=== PATIENT | male | born 1960 | race Caucasian/White ===

== ENCOUNTER 2018-04-05 16:55 | Inpatient (IN) | payer OTHER ==
[2018-04-05] MEDS ORDERED: Heparin for STEMI(*) 5,000 UNITS/ML 1 ML VIAL IV ONE ×3 (17:00→17:25)
--- NOTE | 2018-04-05 17:06 | ED ---
HPI Chest Pain - HPI Summary HPI Summary: A 57 y/o male brought in by [place] ambulance presents to [facility] with a chief complaint of chest pain since 16:00. The patient was a possible STEMI. At 16:54 Dr. Lee was at bedside reviewing the patient. At 17:07 a STEMI alert was called The patient was given 1 NTG in the ambulance. He also c/o nausea, diaphoresis and indigestion. He denies vomiting. He states that he has been having similar symptoms for months but the pain has been alleviated quickly, but today his pain remained. He states that initially his pain was an 8 or 9/10 but now is at a 7/10. - History of Current Complaint Hx Obtained From: Patient, EMS Onset/Duration: Started Minutes Ago, Still Present Timing: Constant Initial Severity: Severe Current Severity: Moderate Pain Intensity: 7 Pain Scale Used: 0-10 Numeric Chest Pain Location: Diffuse Chest Pain Radiates: No Character: Tightness Aggravating Factor(s): Exertion Alleviating Factor(s): Nothing Associated Signs and Symptoms: Positive: Nausea - Allergy/Home Medications Allergies/Adverse Reactions: Allergies Allergy/AdvReac Type Severity Reaction Status Date / Time CONTRAST DYE Allergy Anaphylatic Uncoded 09/04/15 09:37 Shock PMH/Surg Hx/FS Hx/Imm Hx Endocrine/Hematology History: Denies: Hx Diabetes Cardiovascular History: Denies: Hx Hypertension - BORDERLINE - DOES NOT TAKE MEDS, Hx Pacemaker/ICD Respiratory History: Denies: Hx Asthma History: Reports: Hx Renal Disease - ??? HISTORY OF LOW GFR Sensory History: Denies: Hx Hearing Aid Psychiatric History: Denies: Hx Panic Disorder - Surgical History Surgery Procedure, Year, and Place: TONSILLECTOMY - Family History Known Family History: Negative: Diabetes, Blood Disorder - Social History Alcohol Use: Occasionally Substance Use Type: Reports: None Smoking Status (MU): Never Smoked Tobacco Review of Systems Positive: Skin Diaphoresis Positive: Chest Pain - tightness Positive: Nausea, Other - positive: indigestion. Negative: Vomiting All Other Systems Reviewed And Are Negative: Yes Physical Exam - Summary Physical Exam Summary: Appearance: The patient is well-nourished in no acute distress and in no acute pain. Skin: Diaphoretic and pale on arrival. HEENT: The head is normocephalic and atraumatic. The pupils are equal and reactive. The conjunctivae are clear and without drainage. Nares are patent and without drainage. Mouth reveals moist mucous membranes and the throat is without erythema and exudate. The external ears are intact. The ear canals are patent and without drainage. The tympanic membranes are intact. Neck: The neck is supple with full range of motion and non-tender. There are no carotid bruits. There is no neck vein distension. Respiratory: Chest is non-tender. Lungs are clear to auscultation and breath sounds are symmetrical and equal. Cardiovascular: Heart is regular rate and rhythm. There is no murmur or rub auscultated. There is no peripheral edema and pulses are symmetrical and equal. Abdomen: The abdomen is soft and non-tender. There are normal bowel sounds heard in all four quadrants and there is no organomegaly palpated. Musculoskeletal: There is no back tenderness noted. Extremities are non-tender with full range of motion. There is good capillary refill. There is no peripheral edema or calf tenderness elicited. Neurological: Patient is alert and oriented to person, place and time. The patient has symmetrical motor strength in all four extremities. Cranial nerves are grossly intact. Deep tendon reflexes are symmetrical and equal in all four extremities. Psychiatric: The patient has an appropriate affect and does not exhibit any anxiety or depression. Triage Information Reviewed: Yes Vital Signs Reviewed: Yes Diagnostics - Laboratory Result Diagrams: 18 17:00 04/05/18 17:00 Lab Statement: Any lab studies that have been ordered have been reviewed, and results considered in the medical decision making process. - EKG 16:55 Cardiac Rate: NL - 69 bpm EKG Rhythm: Sinus Rhythm Summary of EKG Findings: normal sinus rhythm, inferior ST depressions nonspecific. Re-Evaluation - Re-Evaluation First Eval Re-Evaluation Time: 17:10 Change: Unchanged Comment: Informed pt of STEMI workup Second Eval Re-Evaluation Time: 17:20 Change: Improved Comment: Patient still feels a little tightness but states it is not excruciating. Chest Pain Course/Dx - Course Course Of Treatment: Mr. Pineda presented by ambulance with a story that is suggestive of cardiac pain. For the last couple of months he's been occasionally having some discomfort in his chest with exertion which resolves usually in less than 5 minutes when he rests. Today he was playing the drums and the sensation started but did not resolve. We were notified by the EMS that his EKG was of concern but they could not transmit to us and would be arriving in less than 5 minutes. I met the patient on arrival and an EKG was immediately obtained and the EMS EKG was reviewed. The EMS EKG showed anterior septal acute STEMI with in 4 reciprocal changes. EKG showed only the remaining inferior reciprocal changes which were not as bad. The patient received nitroglycerin and aspirin in the ambulance. Dr. Whitfield was contacted and recommended we call a STEMI and we did. The STEMI team arrived at that point the patient had had heparin and byrlinta as well as morphine he was still complaining of chest discomfort which she states started at about 8 and was now down to less than a 6. He was taken directly to the catheter lab. - Diagnoses Provider Diagnoses: STEMI (ST elevation myocardial infarction) - Provider Notifications Discussed Care Of Patient With: Juan Blake Time Discussed With Above Provider: 17:05 Instructed by Provider To: MD Will See In ED - said based on earlier EKG to call a STEMI. Dr Blake wa at the patient's bedside at 17:27 and will accept the patient for admission. - Critical Care Time Critical Care Time: 30-74 min Discharge - Sign-Out/Discharge Documenting (check all that apply): Patient Departure - Discharge Plan Condition: Fair Disposition: ADMITTED TO [facility] - Billing Disposition and Condition Condition: FAIR Disposition: Admitted to [facility] - Attestation Statements Document Initiated by Leonie: Yes Documenting Scribe: Juan Cornejo Provider For Whom Leonie is Documenting (Include Credential): Mark Lee MD Scribe Attestation: I, Juan Cornejo, scribed for Mark Lee MD on 04/05/18 at 1921. Scribe Documentation Reviewed: Yes Provider Attestation: The documentation as recorded by the Juan agudelo accurately reflects the service I personally performed and the decisions made by me, Mark Lee MD Status of Scribe Document: Viewed
[2018-04-05] MEDS ORDERED: Ticagrelor* 90 MG TAB PO ONE ×3 (17:10→17:25)
[2018-04-05] MEDS ORDERED: Morphine VIAL* 4 MG/ML VIAL (1 ml vial) IV ONE (17:19)
[2018-04-05] MEDS ORDERED: Morphine VIAL* 4 MG/ML VIAL (1 ml vial) ONE (17:20)
[2018-04-05 17:21] LABS: ABS Basophils 0.1 10^3/ul (0-0.2); ABS Eosinophils 0.2 10^3/ul (0-0.6); ABS Monocytes 0.9 10^3/ul (0-0.8); ABS Neutrophils 4.6 10^3/ul (1.5-7.7); ABS Nucleated RBC 0 10^3/ul; Eosinophil % 1.9 %; Hematocrit 39 % (42-52); Hemoglobin 13.5 g/dl (14.0-18.0); Lymphocyte % 34.1 %; Mean Corpuscular HGB Conc 35 g/dl (31-36); Mean Corpuscular Hemoglobin 32 pg (27-31); Mean Corpuscular Volume 91 fL (80-94); Mean Platelet Volume 7.3 fL (7.4-10.4); Nucleated Red Blood Cells % 0.1; Platelet Count 276 10^3/ul (150-450); Red Cell Distribution Width 13 % (10.5-15); White Blood Count 8.8 10^3/ul (3.5-10.8)
[2018-04-05] MEDS ORDERED: VERAPAMIL 2.5 MG/ML 2 ML VIAL ** 5 mg/2 ml ONE (17:24)
[2018-04-05] MEDS ORDERED: Heparin(*) 1000 UNIT/ML 10 ML VIAL CATH LAB IV ONE (17:24)
[2018-04-05] MEDS ORDERED: nitroGLYCERIN DRIP* 25,000 MCG/250 ML BTL ONE (17:25)
[2018-04-05] MEDS ORDERED: Lidocaine 1% INJ* 10 MG/ML 30 ML SDV ONE (17:25)
[2018-04-05] MEDS ORDERED: Heparin 2 UNITS/ML IVPREMIX* 2,000 ML IV ONE (17:25)
[2018-04-05] MEDS ORDERED: Iohexol 350 (CONTRAST) 200 ML MDV IV ONE (17:25)
[2018-04-05 17:33] LABS: EGFR Non-African American 48.3 (>60)
[2018-04-05] MEDS ORDERED: methylPREDNISolone SOD 40 MG* 1 ML VIAL ONE (17:38)
[2018-04-05] MEDS ORDERED: methylPREDNISolone 125 MG* 2 ML VIAL ONE (17:38)
[2018-04-05] MEDS ORDERED: methylPREDNISolone 125 MG* 2 ML VIAL IV ONE (17:42)
[2018-04-05] MEDS ORDERED: diPHENhydraMINE IV* 50 MG/ML 1 ml VIAL (BENADRYL) ONE (17:45)
[2018-04-05] MEDS ORDERED: Midazolam* 1 MG/ML 10 ML VIAL (10 MG) ONE (17:47)
[2018-04-05] MEDS ORDERED: fentaNYL* 50 MCG/ML 2 ML VIAL (100 MCG VIAL) ONE (17:47)
[2018-04-05] MEDS ORDERED: Iodixanol 320 (CONTRAST) 100 ML SDV ONE (17:48)
[2018-04-05 17:50] LABS: INR 0.93 (0.77-1.02)
[2018-04-05] MEDS ORDERED: Bivalirudin(*) 250 MG VIAL ONE (18:08)
[2018-04-05] MEDS ORDERED: Zolpidem TAB* 5 MG PO PRN (18:43)
[2018-04-05] MEDS ORDERED: Ondansetron INJ* 2 MG/ML VIAL IV PRN (18:43)
[2018-04-05] MEDS ORDERED: Nitroglycerin TAB 0.4 MG* 0.4 MG TAB SL PRN (18:43)
[2018-04-05] MEDS ORDERED: NS 0.9% 1000 ML* 1,000 ML IV SCH (18:45)
[2018-04-05] MEDS: Atorvastatin* 80 MG TAB PO SCH (19:48)
[2018-04-05] MEDS: Metoprolol Tartrate TAB* 25 MG PO SCH (19:48)
[2018-04-06] MEDS ORDERED: Ticagrelor* 90 MG TAB PO SCH ×2 (05:00→09:00)
[2018-04-06 05:25] LABS: ABS Basophils 0 10^3/ul (0-0.2); ABS Eosinophils 0 10^3/ul (0-0.6); ABS Lymphocytes 0.9 10^3/ul (1.0-4.8); ABS Monocytes 0.2 10^3/ul (0-0.8); ABS Nucleated RBC 0 10^3/ul; Eosinophil % 0 %; Hematocrit 39 % (42-52); Hemoglobin 13.4 g/dl (14.0-18.0); Mean Corpuscular HGB Conc 34 g/dl (31-36); Mean Corpuscular Hemoglobin 31 pg (27-31); Mean Corpuscular Volume 91 fL (80-94); Nucleated Red Blood Cells % 0; Platelet Count 249 10^3/ul (150-450); Red Cell Distribution Width 13 % (10.5-15); White Blood Count 10.1 10^3/ul (3.5-10.8)
[2018-04-06 05:40] LABS: EGFR Non-African American 59.7 (>60)
[2018-04-06] MEDS: Metoprolol Tartrate TAB* 25 MG PO SCH ×5 (08:56→23:35)
[2018-04-06] MEDS: Aspirin 81 mg CHEW TAB* 81 MG TAB.CHEW PO SCH (08:57)
--- NOTE | 2018-04-06 12:42 | CONS ---
CONSULTATION REPORT: DATE OF CONSULT: 04/06/18 CURRENT LOCATION: ICU, room 8, bed 1. REASON FOR CONSULT: Abnormal CT scan. HISTORY OF PRESENT ILLNESS: Mr. Pineda is a very nice 57-year-old gentleman who came into the [facility] Emergency Department yesterday with chest pain starting at around 4:00 p.m., he was playing drums at the time that it started. There was concern for a possible STEMI. He was given nitroglycerin at that time. He also noted some nausea, diaphoresis, and indigestion. He told me that he has been having "warning signs" for some time. He has had other chest pain, it resolved quickly, but the pain was consistent yesterday and he brought in. He noted the pain was rated 9/10 initially. He also has seen Dr. Phillip, Ophthalmology, for history of a right strabismus. He has had some double vision for the last year and Dr. Phillip as part of his workup, did a CT scan of the brain back on 03/27/18. At that time, it showed a small focus of high attenuation within the left posterior frontal avalos radiata. I did review the films and agree. Differential included small parenchymal hemorrhage , dystrophic calcification or small metastatic focus and an MRI was recommended. He was scheduled to have his MRI today, but had the chest pain yesterday and was admitted. He did undergo catheterization yesterday and a drug eluting stent was placed. I do not have the details on the catheterization at this point. Dr. Balke did speak with the on-call neurologist yesterday who reviewed the films and felt that the benefits of a drug eluting stent given the patient's acute presentation outweighed any risks that might be present with the possible small hemorrhage and the stent was placed. I did review the films with Dr. Mckeon, Radiology and we have decided to repeat a CT scan of the brain to look for resolution, which would highly suggest underlying small hemorrhage versus persistence of the finding, which would lean more towards calcification or unlikely but possible metastatic disease. The patient will need an MRI of the brain, but given the recent stenting, I would prefer to hold on that for now unless absolutely necessary. Unfortunately, the patient does have a severe allergy to CONTRAST DYE, so all studies will have to be done without contrast. PAST MEDICAL HISTORY: As noted above. 1. He has borderline hypertension. 2. He also reported that he might have some renal disease. PAST SURGICAL HISTORY: Includes tonsillectomy. FAMILY HISTORY: Noncontributory. SOCIAL HISTORY: He occasionally drinks. No tobacco use. No illicit substance use. He works in sales. REVIEW OF SYSTEMS: Current review of systems as noted above in the HPI, otherwise negative. He does note the double vision, but denies any focal numbness, tingling, or weakness, facial droop, problem swallowing, problem speaking, problems with his gait, headaches, vision loss. His nausea and vomiting is better. Chest pain has improved. Diaphoresis has resolved. Notes no recent fevers, chills, recent sick contact, falls, head trauma, dysuria, frequency, urgency, diarrhea, or constipation. PHYSICAL EXAM: Vital Signs: Temp of 99, heart rate of 66 to 71, respiratory rate of 16, blood pressure 124/72. General: He is a well-nourished, well- developed gentleman in no acute distress. He is lying in his hospital bed. He is pleasant, well dressed, well groomed. HEENT: Normocephalic, atraumatic. Sclerae are anicteric. Mucous membranes are moist. Oropharynx is clear. Nares are patent. Neck: Supple. No thyromegaly. No carotid bruits. No meningismus. Chest: Clear to auscultation bilaterally. Cardiovascular: Regular rate and rhythm without murmurs. Abdomen: Nontender and nondistended. Extremities: There is no clubbing, cyanosis, or edema. His skin is warm and dry with good pulses. Neurologic: He was awake, alert, and oriented x 3. His speech is fluent. There is no dysarthria. Repetition is intact. Recall of recent and remote events is intact. Vocabulary is intact. His mood is dysthymic. Affect mood congruent. Cranial Nerves: Pupils are equally round and reactive to light. Extraocular muscles, he has a mild exotropia on the right with double vision in all toney. His visual toney are otherwise full. Face is symmetric. Sensation is intact in the face bilaterally. Tongue is midline. Palate raises symmetrically. Hearing is intact bilaterally. Sternocleidomastoid and trapezius are 5/5. Motor Exam: Spontaneously moving all extremities. Antigravity 5/5 throughout. Tone and bulk are both normal. No drift. Sensation intact to light touch and pinprick throughout in the upper and lower extremities. DTRs are 2+ and symmetric in the upper and lower extremities bilaterally. Equivocal Babinski's. [id number], rapid alternating movements are intact bilaterally. No dysdiadochokinesia or dysmetria. Gait was not tested at this time. There is no resting tremor or finger- to-nose tremor. LABORATORY DATA: Includes a CBC with diff, with a white count of 10.1, hemoglobin of 13.4, hematocrit of 39. INR of 0.93, PTT of 25.3. Chemistry; a complete metabolic profile showed normal liver function studies, creatine kinase is elevated 431 this morning, CK-MB is 48.1. Troponins have gone up 2.49 to 4.85 to 7.56. Lipids; LDL of 141, HDL of 51.7. VZV DNA positive. IMAGING: Brain CT scan as noted above in the HPI. ASSESSMENT AND PLAN: Mr. Pineda is a 57-year-old gentleman with a history of borderline hypertension, who presented yesterday with acute onset chest pain with ST-elevation myocardial infarction, underwent catheterization with drug eluting stent. The case was complicated by the fact that he had a CT scan of the brain back on 03/27/18, which showed a small hypodensity. This was reviewed with neurologist director of graduate admissions, who felt that the benefits of a drug-eluting stent outweighed the risks and the patient underwent the procedure. He has since done well. No neurologic deficits other than his chronic strabismus, which is being followed by Dr. Phillip, Ophthalmology. I was consulted to further evaluate the small area on his CT scan. I spoke with the radiologist and we both feel that a repeat CT of the head without contrast will give us more information. If the small area has resolved, it was likely a small hemorrhage; if it is not, then it is likely calcification versus a small metastatic focus, although my suspicion for that is low. I would recommend we get an MRI of the brain likely as an outpatient as he has recently undergone a procedure with the drug-eluting stent and I do not think that this is an emergent issue. My suspicion that this is a hemorrhage is low, but should the repeat CT show resolution, I think that the risks of any further intracranial bleeding are very low and I agree that the benefits of drug- eluting stent outweigh any risks that existed. If the repeat CT shows resolution suggesting the possibility of a small hemorrhage, I will get a MRA of the head. The patient unfortunately, is allergic to CONTRAST DYE, so a CTA of the head and neck is not feasible. I will continue to follow him and make further recommendations. Thank you for the opportunity to participate in his care. Addendum: I reviewed the results of the repeat CT head which shows no change in the small hyperdensity. Concern for hemorrhage at this point is very low. Concern for AVM is low. Most likely calcification although a small metastatic lesion cannot be excluded. I would recommend outpatient MRI of the brain in the next few weeks, with contrast if his allergy will permit it. I will be happy to follow him up in my clinic as well. I will sign off for now but neurology is available for any further issues or concerns. Dr. Turner will be the neurologist director of graduate admissions tomorrow and I will discuss the case with her. [id number] #: [id number]/CPS #: [id number] LG
--- NOTE | 2018-04-06 14:31 | CONS ---
CONSULTATION NOTE: ADDENDUM: Neurologic: He was awake, alert, and oriented x 3. His speech is fluent. There is no dys arthria. Repetition is intact. Recall of recent and remote events is intact. Vocabulary is intact. His mood is dysthymic. Affect mood congruent. Cranial Nerves: Pupils are equally round and reacti ve to light. Extraocular muscles, he has a mild exotropia on the right with double vision in all fie lds. His visual toney are otherwise full. Face is symmetric. Sensation is intact in the face bilat erally. Tongue is midline. Palate raises symmetrically. Hearing is intact bilaterally. Sternoclei domastoid and trapezius are 5/5. Motor Exam: Spontaneously moving all extremities. Antigravity 5/5 throughout. Tone and bulk are both normal. No drift. Sensation intact to light touch and pinprick throughout in the upper and lower extremities. DTRs are 2+ and symmetric in the upper and lower extr emities bilaterally. Equivocal Babinski's. [id number], rapid alternating movements are intact b ilaterally. No dysdiadochokinesia or dysmetria. Gait was not tested at this time. There is no rest ing tremor or finger- to-nose tremor. LABORATORY DATA: Includes a CBC with diff, with a white count of 10.1, hemoglobin of 13.4, hematocri t of 39. INR of 0.93, PTT of 25.3. Chemistry; a complete metabolic profile showed normal liver func tion studies, creatine kinase is elevated 431 this morning, CK-MB is 48.1. Troponins have gone up 2. 49 to 4.85 to 7.56. Lipids; LDL of 141, HDL of 51.7. VZV DNA positive. IMAGING: Brain CT scan as noted above in the HPI. ASSESSMENT AND PLAN: Mr. Pineda is a 57-year-old gentleman with a history of borderline hypertensio n, who presented yesterday with acute onset chest pain with ST-elevation myocardial infarction, under went catheterization with drug eluting stent. The case was complicated by the fact that he had a CT scan of the brain back on 03/27/18, which showed a small hypodensity. This was reviewed with neurolo gist sales promotion manager, who felt that the benefits of a drug-eluting stent outweighed the risks and the patient underwent the procedure. He has since done well. No neurologic deficits other than his chronic str abismus, which is being followed by Dr. Phillip, Ophthalmology. I was consulted to further evaluate the small area on his CT scan. I spoke with the radiologist and we both feel that a repeat CT of th e head without contrast will give us more information. If the small area has resolved, it was likely a small hemorrhage; if it is not, then the possibility of calcification versus a small metastatic fo cus, although my suspicion for that is low. I would recommend we get an MRI of the brain likely as a n outpatient as he has recently undergone a procedure with the drug-eluting stent and I do not think that this is an emergent issue. My suspicion that this is a hemorrhage is low, but should the repeat CT show resolution, I think that the risks of any further intracranial bleeding are very low and I a gree that the benefits of drug-eluting stent outweigh any risks that existed. If the repeat CT shows resolution suggesting the possibility of a small hemorrhage, I will get a MRA of the head. The patie nt unfortunately, is allergic to CONTRAST DYE, so a CTA of the head and neck is not feasible. I will continue to follow him and make further recommendations. Thank you for the opportunity to participate in his care. [id number]/[id number] #: [id number]
--- NOTE | 2018-04-06 15:42 | ECHO ---
Patient: KARIN CABALLERO [facility] Rec#: [id number] : 1960 Date: 04/06/2018 Age: 57y Height: 175 cm / 68.9 in Weight: 73 kg / 160.9 lbs Sex: M BSA: 1.88 Room#: ICU 8 Admit Date#: 04/05/2018 Type: Inpatient Referring: Juan Blake MD Reading: Mu Pro MD [employer] Director: Gabriela Zepeda,RDCS,RDMS CC: Alfredo Mendoza MD Transthoracic Echocardiogram Indication: STEMI BP: 98/49 HR: 65 Rhythm: NSR Findings History: S/P STEMI AND PCI. Technical Comments: The study quality is good. Left Ventricle: The left ventricular chamber size is normal. Basal interventricular septum shows moderate thickening. There is a focal wall motion abnormality present. There is mild to moderately decreased left ventricular systolic function. The estimated ejection fraction is 40-45%. There is no consistent Doppler evidence of clinically significant diastolic dysfunction. The mid anteroseptal, mid anterior, and apical lateral wall segments are hypokinetic (score 2). The apical septal, and apical anterior wall segments are akinetic (score 3). Overall wallmotion score index is 2.40 Left Atrium: The left atrial chamber size is normal. Right Ventricle: The right ventricular chamber size and systolic function are within normal limits. Right Atrium: The right atrial cavity size is normal. Aortic Valve: The aortic valve is trileaflet. The aortic valve leaflets are mildly thickened. Systolic excursion of the aortic valve is normal. There is a trace of aortic regurgitation. There is no evidence of aortic stenosis. Mitral Valve: The mitral valve leaflets appear normal. There is no evidence of mitral regurgitation. There is no evidence of mitral stenosis. Tricuspid Valve: The tricuspid valve leaflets are normal. There is no evidence of tricuspid valve regurgitation. Unable to estimate the right ventricular systolic pressure. Pulmonic Valve: The pulmonic valve structure is not well visualized. There is no evidence of pulmonic regurgitation. Pericardium: There is no significant pericardial effusion. Aorta: The aortic root appears normal. There is no dilatation of the aortic arch. Pulmonary Artery: The main pulmonary artery is not well visualized. Venous: The inferior vena cava is dilated. There is a greater than 50% respiratory change in the inferior vena cava dimension. Summary: There was not any prior study for comparison. Conclusions There is mild to moderately decreased left ventricular systolic function. The estimated ejection fraction is 40-45%. The mid anterose The right ventricular chamber size and systolic function are within normal limits. There is a trace of aortic regurgitation. There is no evidence of mitral regurgitation. There is no evidence of tricuspid valve regurgitation. There is no significant pericardial effusion. Measurements Name Value Normal Range RVIDd (AP) 2D 3 cm (0.9 - 2.6) RVDdMajor (2D) 2.9 cm (2.2 - 4.4) RAd ISD 4CH 4.6 cm (3.4 - 4.9) RA (A4C)W 3.1 cm (2.9 - 4.6) IVSd (2D) 1.4 cm (0.6 - 1) LVPWd (2D) 1 cm (0.6 - 1) LVIDd (2D) 4.2 cm (3.6 - 5.4) LVIDs (2D) 2.5 cm - LV FS (2D) 40 % (25 - 45) Aortic Annulus 2.2 cm (1.4 - 2.6) Ao root diameter (2D) 3.3 cm (2.1 - 3.5) Ascending Ao 3.2 cm (2.1 - 3.4) Aortic arch 2.5 cm (1.8 - 3.4) LA dimension (AP) 2D 2.9 cm (2.3 - 3.8) LAd ISD 4CH 3.8 cm (2.9 - 5.3) LA ISD 4CH W 3.6 cm (2.5 - 4.5) Name Value Normal Range LA ESV BP (A/L) index 18 ml/m2 - Name Value Normal Range MV E-wave Vmax 0.5 m/sec - MV deceleration time 216 msec - MV A-wave Vmax 0.6 m/sec - MV E:A ratio 0.9 ratio - P. vein S-wave Vmax 0.6 m/sec - P. vein D-wave Vmax 0.4 m/sec - P. vein S:D Vmax ratio 1.5 ratio - P. vein A-wave duration 127 msec - LV septal e' Vmax 0.1 m/sec - LV lateral e' Vmax 0.08 m/sec - LV E:e' septal ratio 5 ratio - LV E:e' lateral ratio 7 ratio - Name Value Normal Range AV Vmax 1.2 m/sec - AV VTI 24 cm - AV peak gradient 6 mmHg - AV mean gradient 4 mmHg - LVOT Vmax 1.2 m/sec - LVOT VTI 23 cm - LVOT peak gradient 6 mmHg - LVOT mean gradient 3 mmHg - LIDA Vmax 0.7 m/sec - Name Value Normal Range RAP 8 mmHg - IVC diameter 2.2 cm - Name Value Normal Range PV Vmax 0.7 m/sec - PV peak gradient 2 mmHg - Wallmotion BAS Not Seen BA Not Seen BAL Not Seen DANIEL Not Seen BI Not Seen BIS Not Seen MAS Hypokinetic MA Hypokinetic MAL Not Seen MIL Not Seen SD Not Seen MIS Not Seen Akinetic AA Akinetic AL Hypokinetic AI Not Seen APEX Akinetic
[2018-04-06] MEDS ORDERED: Acetaminophen TAB* 325 MG PO PRN (16:09)
[2018-04-06] MEDS: Atorvastatin* 80 MG TAB PO SCH (17:14)
[2018-04-06] MEDS: Ticagrelor* 90 MG TAB PO SCH (20:17)
[2018-04-07 06:18] LABS: EGFR Non-African American 55.5 (>60)
[2018-04-07] MEDS: Ticagrelor* 90 MG TAB PO SCH ×2 (08:48→18:42)
[2018-04-07] MEDS: Metoprolol Succinate XL TAB* 25 MG PO SCH ×2 (08:49→20:26)
[2018-04-07] MEDS: Aspirin 81 mg CHEW TAB* 81 MG TAB.CHEW PO SCH (08:49)
[2018-04-07] MEDS: Lactobacillus Acidophilus* 1 TAB PO SCH (08:49)
[2018-04-07] MEDS: Docusate CAP* 100 MG PO PRN (08:50)
[2018-04-07] MEDS: Atorvastatin* 80 MG TAB PO SCH (17:45)
[2018-04-08 05:25] LABS: EGFR Non-African American 60.2 (>60)
[2018-04-08] MEDS ORDERED: Metoprolol Succinate XL TAB* 25 MG PO SCH (09:00)
[2018-04-08] MEDS: Aspirin 81 mg CHEW TAB* 81 MG TAB.CHEW PO SCH (09:26)
[2018-04-08] MEDS: Lactobacillus Acidophilus* 1 TAB PO SCH (09:26)
[2018-04-08] MEDS: Ticagrelor* 90 MG TAB PO SCH (09:26)
[2018-04-08] MEDS: Docusate CAP* 100 MG PO PRN (10:06)
[2018-04-08 15:27] VITALS: BP 116/64
--- NOTE | 2018-04-08 18:36 | CATH ---
CC: Dr. Don Phillip; Dr. Larry Calvo; Dr. Mendoza * CARDIAC CATHETERIZATION REPORT: DATE OF PROCEDURE: 04/05/18 - ROOM #447 INDICATION FOR THE PROCEDURE: The patient with acute ST segment elevation, anterior wall myocardial infarction. PROCEDURE: Coronary arteriography, left heart catheterization, left ventriculography, primary stenting of the mid left anterior descending artery with a 3.0 x 16-mm long Synergy drug-eluting stent, post dilated 3.2 mm. The patient was interviewed and examined in the emergency room where the risks and benefits were explained. He understood them and wished to proceed. PRE-OP LABORATORY RESULTS: Hemoglobin and hematocrit of 13.5 and 39 with a platelet count of 276,000. BUN and creatinine were 22 and 1.5. Sodium of 137, potassium 3.2, chloride 102, bicarb 23. MEDICATIONS GIVEN DURING THE PROCEDURE: The patient received Versed 2 mg in addition to an Angiomax bolus and an Angiomax drip for subtherapeutic ACT. The patient received a radial artery cocktail including 3 mg verapamil and 300 mcg of nitroglycerin. The patient had already received full dose aspirin, 4000 units of heparin and 180 mg of Brilinta in the emergency room. APPROACH: The right radial artery was visualized under ultrasound and found to be acceptable for an approach. DESCRIPTION OF PROCEDURE: The patient was brought into the cardiac catheterization lab and formal time-out was performed. He was prepped and draped in a sterile fashion, the right radial artery area was anesthetized with 1% lidocaine and the right radial artery was cannulized under ultrasound guidance and the sheath was placed. Coronary arteriography was performed utilizing a TIG-4, 5-Mozambican catheter over a Turner 260 length guidewire. After this, decision was made to intubate him to the mid left anterior descending artery. Guiding views were obtained with a 6- Mozambican VL 3.5 curve left coronary guide catheter. An All Star 190 cm length wire was advanced down the left anterior descending artery and primary stenting utilizing a 3.0 x 16 mm long Synergy drug-eluting stent was performed with post deployment balloon inflation, utilizing the IA Emerge 3.0 x 8 mm long balloon to high pressures. Following this, a left heart catheterization was performed utilizing a 5-Mozambican pig-Performa radial catheter, central aortic pressure and left ventricular pressure was recorded and left ventriculography was performed utilizing a total of 24 cc of Visipaque dye at a rate of 12 cc per second. The total contrast used was 115 cc of Visipaque dye. The radiation exposure included 9 minutes of fluoro time. The air kerma radiation was 1160 milligray, the DAP radiation was 6872 microgray/sq.m. RESULTS: HEMODYNAMIC DATA: Left heart catheterization. Ascending aortic pressure was 113/58 with a mean of 86. Left ventricular pressure was 111 over left ventricular end diastolic pressure of 18. LEFT VENTRICULOGRAPHY: Performed in the PINO projection revealed a severe hypokinesis of the mid-to- distal anterior wall with akinesis of the apical region. The overall ejection fraction estimated at 35% to 40%. A run of ventricular tachycardia was seen. Mitral regurgitation was secondary to the ventricular tachycardia. CORONARY ARTERIOGRAPHY: A. Left coronary artery: 1. Left main - widely patent. 2. Left anterior descending artery. The left anterior descending artery had calcium seen its proximal portion. There was a mild 20% narrowing seen in the proximal portion to the artery. Past this point, there was calcium in the mid segment with the left anterior descending artery tapering into a very hazy 95% stenotic area encompassing a second septal drafter landscape. Past this point, the left anterior descending artery was mild disease supplying a mid diagonal branch and a continuation of the LAD. There was MINO-3 flow noted. 3. Circumflex artery - a nondominant vessel supplying a very thin first obtuse marginal branch, short nature, a moderate size mid obtuse marginal branch that had an area of lumen reduction of approximately 45% to 50%. The circumflex continued into a parallel low lying obtuse marginal branch and ended in very thin low lying posterior left ventricular branch. There was mild ostial narrowing of 30% to 35%. B. Right coronary artery - a dominant vessel supplying to PDA and posterior left ventricular branch. There were several acute marginal branches. There was a mild luminal irregularities noted, but no significant stenosis seen throughout the course of the vessel. INTERVENTION INTO MID LEFT ANTERIOR DESCENDING ARTERY: Successful reduction of critical 95% hazy obstruction with primary stenting with a 3.0 x 16 mm long Synergy drug-eluting stent post dilated to 3.2 mm with MINO-3 flow, no dissection seen, and 0% residual stenosis. OVERALL ASSESSMENT: Critical single-vessel disease involving the mid LAD as mentioned above. Of note, there is vbnr-sb-xhumcyat disease in the obtuse marginal branch of the circumflex as described above. Aggressive medical management with high-dose statin therapy, beta-tony therapy, and consideration for [facility] institution as long as his blood pressure remain stable will be considered. Echocardiogram to serve as a baseline will be performed tomorrow for which to compare with future ones. A dual-antiplatelet therapy for minimal of 1 year will be pursued. [id number]/[facility] #: [id number] [facility] MEDICAL CENTERFaheem
--- NOTE | 2018-04-08 21:05 | HP ---
CC: Dr. Don Phillip; Dr. Mendoza; Dr. Larry Calvo * ADMISSION HISTORY AND PHYSICAL: DATE OF ADMISSION: 04/05/18 CHIEF COMPLAINT: Chest discomfort with EKG by EMS suggesting ST elevation, anterior wall myocardial infarction. HISTORY OF PRESENT ILLNESS: The patient is a 57-year-old gentleman with no prior known cardiac history. Specifically, he denies any history of myocardial infarction, congestive heart failure, or significant heart rhythm disturbance. The patient states that over the past several weeks to months, he has been having episodes of exertionally related chest pressure sensation with shortness of breath. He noted this while he was playing drums as well as other physical activity. Today, while he was playing drums, he developed the onset of this and with it, it did not go away. It usually would go away once he would stop the activity. With it worsening, the EMS was summoned and EKG by the EMS revealed ST-segment elevation anteriorly. He was brought into [facility] after having gotten nitro and aspirin by the ambulance. He was feeling somewhat better, but still had persisted ST segment elevation in V2 and V3 with chest symptoms. The risks and benefits for cardiac catheterization were explained to him, he understood and wished to proceed. It was then brought to our attention that the patient had an abnormal CAT scan from less than 2 weeks ago with a very small area involving the left frontal avalos area. He was supposed to get an MRI done tomorrow to assess it further. Dr. Phillip had ordered it for a IVth nerve palsy just to make sure no other process was going on. I personally spoke to Dr. Phillip regarding this and it was felt not to be a significant abnormality and Dr. Phillip felt that we should treat the patient with the best cardiac regimen possible including drug- eluting stent for which he understood we will need dual antiplatelet therapy for year's time. PAST MEDICAL HISTORY: 1. Borderline hypertension. 2. Borderline hyperlipidemia. 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 4. Abnormal CT of head - left frontal avalos area small abnormality Cardiac risk factors included the borderline hypertension, borderline hyperlipidemia, family history of CAD (father). He stated he had recently had abnormal kidney results from a recent blood test, but no known history of that. SOCIAL HISTORY: He does not smoke. FAMILY HISTORY: He has family history of father with significant coronary artery disease and of coronary problems young in life and according to me, he was not a diabetic. REVIEW OF SYSTEMS: Pertinent to proceeding with cardiovascular laboratory, he denied any history of stroke or TIA. He denied any history of hematochezia, hematemesis, or hematuria. He did mention there is a renal abnormality and we have blood tests that are pending at this time, but clearly this would not be enough to stop us from proceeding given his acute status. Also, he denies any history of dye allergy. PHYSICAL EXAMINATION GENERAL: Reveals pleasant gentleman still with chest discomfort present. VITAL SIGNS: Blood pressure 130/72, pulse 63 and regular, afebrile, respirations 19. HEENT: Conjunctivae were pink. Sclerae clear. NECK: Supple without increased JVP. Carotid had good upstroke and volume without bruits. LUNGS: Revealed no accessory muscle usage. No active rales, rhonchi, or wheezes. HEART: Revealed no visible heaves. No palpable heaves or thrills. Normal S1, S2 without significant systolic or diastolic murmur. ABDOMEN: Soft, nontender without organomegaly. EXTREMITIES: Without clubbing, cyanosis, ovi pitting edema. Peripheral pulses were intact. Femoral pulses were present bilaterally without bruits. Radial artery pulse was strong. NEURO: The patient is alert, oriented with normal mentation. MUSCULOSKELETAL: The patient moves all extremities, appropriate. PSYCHOLOGICAL: The patient with appropriate affect. IMAGING: Electrocardiogram in the emergency room revealed ST-segment elevation in V2 and V3, mildly in I with reciprocal changes in II, III, aVF and V6 with poor R- wave progression anteriorly. OVERALL ASSESSMENT: Raoul now presents in the throes of an acute ST-segment elevation, anterior wall myocardial infarction with some improvement of symptoms and EKG. He has received heparin bolus and already received Brilinta by the emergency room physician. His blood pressure is in the stable range. He has received aspirin as well. Further management will be made pending results of the cardiac catheterization. He understands the risks and benefits and wished to proceed. [id number]/[facility] #: [id number] MTDD
--- NOTE | 2018-04-09 07:10 | DS ---
AMENDED REPORT NOW INCLUDES DATE OF DISCHARGE CC: Dr. Alfredo Mendoza; Dr. Larry Calvo; Dr. Don Phillip * DISCHARGE SUMMARY: DATE OF ADMISSION: 04/05/18 DATE OF DISCHARGE: 04/08/18 FINAL DIAGNOSIS: Acute ST-segment elevation anterior wall myocardial infarction. SECONDARY DIAGNOSES: 1. History of borderline hypertension. 2. History of borderline hyperlipidemia. 3. Fourth nerve palsy with strabismus. 4. Question of abnormal lesion on CT scan in left posterior frontal avalos radiata. 5. Mild renal insufficiency by recent blood test in Dr. Mendoza' office. DISCHARGE MEDICATIONS: 1. Aspirin 81 mg a day. 2. Atorvastatin 80 mg a day. 3. Lactobacillus as at home. 4. Metoprolol succinate 25 mg a day. 5. Nitroglycerin sublingual p.r.n. 6. Ticagrelor (Brilinta) 90 mg twice a day. HOSPITAL COURSE: The patient is a pleasant 57-year-old gentleman, who has had episodes of chest tightness and shortness of breath for several weeks prior to the day of admission. He noticed that when he would play drums, this would happen as well as other exertional activities and when stopped, it seemed to go away. It got progressive, taking less to bring on and he again developed the onset of symptoms while playing drums but this time it didn't go away. The EMS were called and noted ST-segment elevation in the anterior leads, gave nitroglycerin and aspirin, and he had improvement of symptoms. There was still some ST-segment elevation in the early precordial leads with the chest tightness albeit better. He was taken to the cardiovascular lab where he was found to have a 95% hazy mid LAD lesion with mild disease elsewhere. His overall EF was estimated at 35 % to 40% with anterior wall motion abnormality noted. He underwent successful primary stenting with a 3.0 x 16 mm long Synergy drug-eluting stent, post dilated to 3.8 mm. During the course of the hospitalization, his cardiac enzymes peaked with a CK- MB of 48 and with total CPK in the mid 400 range. Troponins were still elevating minimally in the range of 7.56 to 7.89 when they were last checked. He was noted to have LDL of 141 with the total cholesterol of 203. During the course of the hospitalization, his creatinine stayed recently stable. He came in at 1.49, but by his last blood test, he was 1.23. He had an echocardiogram performed on 04/06/18 that revealed an overall EF of 40 % to 45% with hypokinesis of the anteroapical lateral kwan with akinesis of the very apical area. He had no significant valvular disease. During the course of the hospitalization, his beta tony which had been 25 mg twice a day of metoprolol succinate had to be decreased to 25 mg a day due to weakness and borderline hypotension and bradycardia. At the time of discharge, he was up and about walking the halls without significant problems. He was not postural with the standing blood pressure of 110. One issue that did come up during his hospitalization that was very important, he had had an abnormal CAT scan that was ordered by Dr. Don Phillip for assessment of his fourth nerve palsy and on it they had found a very small focus in the left side of the brain. I personally spoke with Dr. Don Phillip even before going to the matlab developer in the emergency room and I also spoke with Dr. Arora while in the matlab developer before proceeding to intervene.He was kind enough to review the CT films and he also felt that this was a small area involved and it did not have the appearance of a significant bleed. As such, both Dr. Purdy and Dr. Arora recommended that I give the best cardiac care with regard to the type of stent placement and I explained that I will be putting in a drug-eluting stent which would require dual- antiplatelet therapy ideally for 1 year's time. They agreed with that approach. During the course of hospitalization, Dr. Larry Calvo was kind enough to consult on the case and a CAT scan was then performed on 04/06/18 to compare with the prior one from 03/27/18. Radiology felt there was no significant change and hence felt that this was most consistent with dystrophic calcification. No evidence of intracranial hemorrhage or acute intracranial process. The patient will be following up with Dr. Larry Calvo in the office. On the day of discharge, I reviewed all of the patient's medications and answered his questions to his satisfaction. We provided him with a cardiac education booklet and I reviewed his stent card with him. He will be seen by my partner, Dr. Gilbert, next week in addition to Dr. Calvo next week as well. I instructed him to also follow up with his family doctor, Dr. Alfredo Mendoza, who we have sent all of these reports to. [id number]/[facility] #: [id number] LG
== END 2018-04-08 17:00 | disposition home or self-care (01) | DRG 247 ==
LOC: ED 16:55 → OR 17:42 → ICU 18:54 → MEDTELE 04-06 18:14
PROVIDERS: ADMIT Internal Medicine Cardiovascular Disease; ATTEND Internal Medicine Cardiovascular Disease
PROC: 4A023N7 Measurement of Cardiac Sampling and Pressure, Left Heart, Percutaneous Approach (ICD-10-PCS; 2018-04-05)
PROC: B2151ZZ Fluoroscopy of Left Heart using Low Osmolar Contrast (ICD-10-PCS; 2018-04-05)
PROC: B2111ZZ Fluoroscopy of Multiple Coronary Arteries using Low Osmolar Contrast (ICD-10-PCS; 2018-04-05)
PROC: 027034Z Dilation of Coronary Artery, One Artery with Drug-eluting Intraluminal Device, Percutaneous Approach (ICD-10-PCS; principal; 2018-04-05 17:45)
DX: I21.09 ST elevation (STEMI) myocardial infarction involving other coronary artery of anterior wall (principal); R03.0 Elevated blood-pressure reading, without diagnosis of hypertension; E78.5 Hyperlipidemia, unspecified; H50.9 Unspecified strabismus; H49.10 Fourth [trochlear] nerve palsy, unspecified eye; I11.0 Hypertensive heart disease with heart failure; I50.9 Heart failure, unspecified; I25.10 Atherosclerotic heart disease of native coronary artery without angina pectoris; G93.89 Other specified disorders of brain; N28.9 Disorder of kidney and ureter, unspecified; I95.9 Hypotension, unspecified; R00.1 Bradycardia, unspecified; Z82.49 Family history of ischemic heart disease and other diseases of the circulatory system; Z91.041 Radiographic dye allergy status; Z72.89 Other problems related to lifestyle; Z79.02 Long term (current) use of antithrombotics/antiplatelets; Z79.82 Long term (current) use of aspirin
CPT/HCPCS: 36415; 70450; 80048; 80053; 80061; 82550; 82553; 83605; 83721; 83880; 84484; 85025; 85347; 85610; 85730; 87641; 93005; 93306; 99156; 99157; 99285; A9270-GY; C1725; C1769; C1876; C1887; C9606-LD; J0583; J1200; J1644; J2250; J2270; J2920; J2930; J3010

== ENCOUNTER 2019-01-19 18:30 | Emergency (ER) | payer OTHER ==
--- OUTSIDE RECORDS SUMMARY | 2019-01-19 18:35 | XMS REPORT | Summary of Care ---
:1960 Author Organization [facility] Address [address] [place] [address] Care Team Providers Name Role Phone Alfredo Mendoza MD Primary Care Provider Reason for Visit Reason Comments Follow Up Pt. in for a 6 month Follow up. Pt. S/P STEMI 04/05/2018. Palpitations Pt. reports Episode of "fluttering" in his Chest. Medication Management Pt. reports Cutting Lipitor in half. Encounter Details Date Type Department Care Team Description 01/11/2019 Office Visit Juan Linda, Coronary artery Cardiology MD Magen disease involving [address] [place] [address] [place] [address] of [place] heart [phone] without angina pectoris (Primary Dx) Allergies No Known Allergiesdocumented as of this encounter (statuses as of 01/12/2019) Medications Medication Sig Dispensed Refills Start Date End Date Status Multiple Vitamin Take by 0 Active (MULTI VITAMIN PO) mouth. Ascorbic Acid Take 2 Tabs 0 Active (VITAMIN C) 1000 MG by mouth Oral Tab DAILY. Glucosamine-Chondro Take 2 Tabs 0 Active it-Vit C-Mn by mouth (GLUCOSAMINE CHONDR DAILY. 500 COMPLEX PO) Magnesium Oxide Take 2 Tabs 0 Active (MAG-OX PO) by mouth DAILY. Mag-O 7 Probiotic Product Take by 0 Active (PROBIOTIC DAILY) mouth DAILY. Oral Cap aspirin (ECOTRIN) Take 1 Tab 30 Tab 0 04/09/2018 Active 81 MG Oral Tab EC by mouth DAILY. atorvastatin Take 1 Tab 30 Tab 0 04/09/2018 Active (LIPITOR) 80 MG by mouth Oral Tab EVERY BEDTIME. ticagrelor Take 1 Tab 60 Tab 0 04/09/2018 Active (BRILINTA) 90 MG by mouth Oral Tab TWICE DAILY. nitroglycerin Place 1 1 Bottle 0 04/09/2018 Active (NITROLINGUAL) 0.4 [place] under MG/SPRAY tongue Translingual NEEDED Solution (chest pain). LISINOPRIL PO Take 1 Tab 0 Active by mouth DAILY. bisoprolol (ZEBETA) Take 0.5 45 Tab 3 01/11/2019 Active 5 MG Oral Tabs by TabIndications: mouth DAILY. Coronary artery disease involving [place] artery of [place] heart without angina pectoris metoprolol Take 1 Tab 30 Tab 0 04/09/2018 Discontinued succinate (TOPROL by mouth 9 (Provider XL) 25 MG Oral DAILY. Discontinued) TABLET SR 24 HR documented as of this encounter (statuses as of 01/12/2019) Active Problems Problem Noted Date Borderline hypertension IBS (irritable bowel syndrome) Constipation Peyronie disease ST segment elevation myocardial infarction (STEMI) of anterolateral wall, subsequent episode of care documented as of this encounter (statuses as of 01/12/2019) Social History Tobacco Use Types Packs/Day Years Used Date Never Smoker Smokeless Tobacco: Never Used Alcohol Use Drinks/Week oz/Week Comments Yes glass wine a few times a week Sex Assigned at Date Recorded Not on file Job Start Date Occupation Industry Not on file Not on file Not on file Travel History Travel Start Travel End No recent travel history available. documented as of this encounter Last Filed Vital Signs Vital Sign Reading Time Taken Comments Blood Pressure 136/82 01/11/2019 4:32 PM EDT Pulse 50 01/11/2019 4:32 PM EDT Temperature - - Respiratory Rate - - Oxygen Saturation - - Inhaled Oxygen Concentration - - Weight 73.5 kg (162 lb) 01/11/2019 4:32 PM EDT Height 172.7 cm (5' 8") 01/11/2019 4:32 PM EDT Body Mass Index 24.63 01/11/2019 4:32 PM EDT documented in this encounter Patient Instructions Patient InstructionsMagen Linda MD - 01/11/2019 4:20 PM EDT STOP taking metoprolol and START taking bisoprolol 2.5mg once daily. Wait about two weeks, and after that then try going back to the 80mg dose of atorvastatin. If you notice more weakness on the 80mg dose of atorvastatin then email me and we can consider switching you to Crestor (rosuvastatin). Continue with a healthy diet and regular exercise. Follow up with me in 1 year or sooner if needed. documented in this encounter Progress Notes Magen Linda MD - 01/11/2019 4:20 PM EDT [facility] Note Patient: Raoul Pineda Date of : 1960 Date of Service: 01/11/2019 REFERRING PRACTITIONER: Alfredo Mendoza PRIMARY CARE PROVIDER: Alfredo Mendoza Chief Complaint: Chief Complaint Patient presents with Follow Up Pt. in for a 6 month Follow up. Pt. S/P STEMI 04/05/2018. Palpitations Pt. reports Episode of "fluttering" in his Chest. Medication Management Pt. reports Cutting Lipitor in half. History of Present Illness: We had the pleasure of seeing Raoul Pineda today at the [facility]. He is a 58-y.o. male with HTN, HLD, and CKD as well as CAD with anterior STEMI 04/05/18 s/p RISHI to the mid LAD at [facility]. Echo at the time of the [place] showed LVEF 40-45% which has since normalized. Mr. Pineda returns to cardiology clinic today for routine f/u. Since his last visit with me in May, he got a repeat echo done which showed normalization of his LVEF (results below). From a symptom standpoint, he reports feeling fairly well overall. He continues to feel that the metoprolol may be making him feel a little fatigued, but denies any CP/pressure or limiting dyspnea. He does note that about two weeks ago he was getting into his car and he noted his heart fluttering. The symptom lasted about 4-5 seconds and hasn't recurred since. Denies any significant lightheadedness or syncope. No orthopnea, paroxysmal dyspnea, or lower extremity edema. Reports that he was noting some more weakness when lifting weights at the gym and cut the atorvastatin dose down to 40mg. He did this a few weeks ago and thinks it may have helped reduce his weakness. Hasn't had any myalgias. Patient Active Problem List Diagnosis Borderline hypertension IBS (irritable bowel syndrome) Constipation Peyronie disease ST segment elevation myocardial infarction (STEMI) of anterolateral wall , subsequent episode of care ([facility]) Past Medical History: Diagnosis Date Borderline hypertension Constipation IBS (irritable bowel syndrome) Medial meniscus tear left knee Peyronie disease ST segment elevation myocardial infarction (STEMI) of anterolateral wall , subsequent episode of care ([facility]) Past Surgical History: Procedure Laterality Date LEFT HEART CARDIAC CATH 04/05/2018 1 stent placed TONSILLECTOMY child No Known Allergies Current Outpatient Medications Medication Sig Ascorbic Acid (VITAMIN C) 1000 MG Oral Tab Take 2 Tabs by mouth DAILY. aspirin (ECOTRIN) 81 MG Oral Tab EC Take 1 Tab by mouth DAILY. atorvastatin (LIPITOR) 80 MG Oral Tab Take 1 Tab by mouth EVERY BEDTIME. bisoprolol (ZEBETA) 5 MG Oral Tab Take 0.5 Tabs by mouth DAILY. Bazskltlnpy-Qpdlorsuf-Ats C-Mn (GLUCOSAMINE CHONDR 500 COMPLEX PO) Take 2 Tabs by mouth DAILY. LISINOPRIL PO Take 1 Tab by mouth DAILY. Magnesium Oxide (MAG-OX PO) Take 2 Tabs by mouth DAILY. Mag-O 7 Multiple Vitamin (MULTI VITAMIN PO) Take by mouth. nitroglycerin (NITROLINGUAL) 0.4 MG/SPRAY Translingual Solution Place 1 [place] under tongue ASNEEDED (chest pain). Probiotic Product (PROBIOTIC DAILY) Oral Cap Take by mouth DAILY. ticagrelor (BRILINTA) 90 MG Oral Tab Take 1 Tab by mouth TWICE DAILY. No current facility-administered medications for this visit. Family History Problem Relation Age of Onset Respiratory Mother COPD Seizures Mother CHF Father Hepatitis C Brother Other Diagnosed Disorder Brother adopted Social History Socioeconomic History Marital status: Single Spouse name: Not on file Number of children: Not on file Years of education: Not on file Highest education level: Not on file Occupational History Not on file Social Needs Financial resource strain: Not on file Food insecurity: Worry: Not on file Inability: Not on file Transportation needs: Medical: Not on file Non-medical: Not on file Tobacco Use Smoking status: Never Smoker Smokeless tobacco: Never Used Substance and Sexual Activity Alcohol use: Yes Comment: glass wine a few times a week Drug use: No Sexual activity: Yes Partners: Female Lifestyle Physical activity: Days per week: Not on file Minutes per session: Not on file Stress: Not on file Relationships Social connections: Talks on phone: Not on file Gets together: Not on file Attends spiritism service: Not on file Active member of club or organization: Not on file Attends meetings of clubs or organizations: Not on file Relationship status: Not on file Intimate partner violence: Fear of current or ex partner: Not on file Emotionally abused: Not on file Physically abused: Not on file Forced sexual activity: Not on file Other Topics Concern Back Care Not Asked Bike Helmet Not Asked Blood Transfusions Not Asked Caffeine Concern Not Asked Exercise Not Asked Hobby Hazards Not Asked International Travel Not Asked Service Not Asked Occupational Exposure Not Asked Seat Belt Not Asked Self-Exams Not Asked Sleep Concern Not Asked Special Diet Not Asked Stress Concern Not Asked Weight Concern Not Asked Social History Narrative Not on file Review of Systems - Negative except as noted in HPI. Physical Exam: Vitals: 01/11/19 1632 BP: 136/82 BP Location: Right arm Patient Position: Sitting Pulse: 50 Weight: 162 lb (73.5 kg) Height: 5' 8" (1.727 m) Body mass index is 24.63 kg/m. General: Well nourished, alert 58-y.o. male in NAD HEENT: anicteric, MMM, no E/E OP, conj pink Neck: JVP approx 4-5 cm above RA, no carotid bruits or LAD CV: RRR, normal s1/s2, no appreciable murmurs, rubs, or gallops Pulm: CTA bilaterally without wheezes, rhonchi, or rales. No increased work of breathing. Abd: soft, NT, ND, +BS. No appreciable pulsatile masses or bruits. Ext: no lower extremity edema, no cyanosis, no cords, redness, or warmth, 2+ distal pulses. Neuro: no gross focal deficits Skin: No visible lesions. Labs: Lab Results Component Value Date NA 140 08/24/2018 K 4.2 08/24/2018 CL 102 08/24/2018 CO2 29 08/24/2018 GLUCOSE 88 08/24/2018 BUN 21 (H) 08/24/2018 CREATININE 1.3 08/24/2018 CALCIUM 9.5 08/24/2018 TP 7.3 08/24/2018 ALBUMIN 4.3 08/24/2018 AST 41 08/24/2018 ALT 58 08/24/2018 ALK 71 08/24/2018 TBILI 0.7 08/24/2018 EGFR 56 08/24/2018 No results found for: BNP Lab Results Component Value Date CHOL 115 08/24/2018 TRIG 61 08/24/2018 HDL 42 08/24/2018 LDL 61 08/24/2018 LDLHDLRATIO 1.4 08/24/2018 CHOLHDLRATIO 2.7 08/24/2018 Cardiac Studies: EKG Today (I personally reviewed): Sinus padmini in 50s. Anterior Q waves as before. TTE 08/24/2018: FINAL IMPRESSION: Normal left heart size with normal LV systolic function and no regional wall motion abnormalities; estimated LVEF 55-60%. Normal right heart size and RV systolic function. No structurally or hemodynamically significant valvular disease. No pericardial effusion. Compared to prior [facility] echo report 04/06/2018, LVEF has normalized. TTE at [facility] 04/06/18: Left Heart Cath 04/05/2018 at [facility]: Assessment & Plan: Raoul Pineda is a 58-y.o. male with HTN, HLD, and CKD as well as CAD with anterior STEMI 04/05/18 s/p RISHI to the mid LAD at [facility]. [place] the [place] of the [place] showed LVEF 40-45% which has since normalized. ICD-9-CM ICD-10-CM 1. Coronary artery disease involving [place] coronary artery of [place] heart without angina pectoris 414.01 I25.10 AMBULATORY 12 LEAD EKG (GLOBAL) bisoprolol (ZEBETA) 5 MG Oral Tab 1. Coronary Artery Disease, s/p AMI and RISHI to LAD: Currently asymptomatic from an ischemic standpoint. I recommend the following medical regimen: Antiplatelets: Continue aspirin 81 mg daily, and Brilinta x 1 year ( April 2019). Statin: LDL 61 in 08/2018 on 80mg atorvastatin. I explained that he's unlikely to remain at goal on the 40mg dose. He's going to re-try the 80mg dose for a few weeks and if he feels the weaknessagain he'll let me know and we' ll plan to switch to 40mg of Crestor. Beta-tony: Has had some fatigue that may be related to the Toprol XL. I'm changing him to 2.5mg of bisoprolol daily to see if that helps. PATRIA-inhibitor/ARB: Cont lisinopril Anti-Anginals: N/A. Thank you for allowing me to participate in the care of Raoul Pineda. We will plan on f/u in our office in ~1 year or sooner prn. If you have any questions or concerns please feel free to call our office at . Magen Linda MD, 01/12/2019, 20:07 This note was created using my previous note as a template; changes were made where appropriate, andall information in the current note is up to date to the best of my knowledge.Electronically signed by Magen Linda MD at 2018 8:07 PM EDTdocumented in this encounter Plan of Treatment Date Type Specialty Care Team Description 03/22/2019 Office Visit Internal Medicine Alfredo Mendoza MD [address] [place] [address] 01/17/2020 Office Visit Cardiology Magen Linda MD [address] [place] [address] Name Type Priority Associated Diagnoses Order Schedule AMBULATORY 12 LEAD EKG EKG Routine Coronary artery disease Ordered: 2018 (GLOBAL) involving [place] coronary artery of [place] heart without angina pectoris Health Maintenance Due Date Last Done Comments PNEUMOCOCCAL 0-64 YRS (1 of 1964 3 - PCV13) ZOSTER IMMUNIZATION SERIES 2008 (1 of 2) INFLUENZA VACCINE (#1) 2019 DEPRESSION SCREENING 03/16/2019 03/16/2018 LIPID DISORDER SCREENING 08/25/2019 08/24/2018, 04/09/2018, 03/16/2018, Additional history exists COLONOSCOPY SCREENING 08/03/2021 08/04/2011 HEPATITIS C SCREENING Completed 03/16/2018 HPV IMMUNIZATION SERIES Aged Out No longer eligible based on patient's age to complete this topic MENINGOCOCCAL VACCINE IMM Aged Out No longer eligible based on patient's age to complete this topic documented as of this encounter Results Not on filedocumented in this encounter Visit Diagnoses Diagnosis Coronary artery disease involving [place] coronary artery of [place] heart without angina pectoris - Primary documented in this encounter Insurance Payer Benefit Plan / Subscriber ID Effective Dates Phone Address Type Group [employer]CIAL AETNA [facility] xxxxxxxxxx 2018-Present [employer] documented as of this encounter
[2019-01-19 18:43] VITALS: BP 110/63
--- NOTE | 2019-01-19 19:06 | UC ---
Skin Complaint HPI - HPI Summary HPI Summary: Patient is a 58-year-old male who presents to the urgent care with chief complaint of having a rash in the right arm. He reports that he had an insect bite but he is not sure. The spider on he was taken. He denies any removal of the tick. However he has been exposed to ticks. He doesn't remember any redness with central clearing but he is not sure. He reports that he is worried that he was exposed to ticks and there for Lyme disease. - History of Current Complaint Chief Complaint: UCSkin Time Seen by Provider: 01/19/19 18:38 Stated Complaint: BUG BITE Hx Obtained From: Patient Onset/Duration: Gradual Onset Skin Exposure Onset/Duration: Weeks Ago Onset Severity: Mild Current Severity: Mild Pain Intensity: 2 - Allergy/Home Medications Allergies/Adverse Reactions: Allergies Allergy/AdvReac Type Severity Reaction Status Date / Time Iodinated Contrast Media Allergy Anaphylatic Verified 01/19/19 18:43 [Iodinated Contrast- Oral Shock and IV Dye] CONTRAST DYE Allergy Anaphylatic Uncoded 01/19/19 18:43 Shock Home Medications: Home Medications Bisoprolol TAB* [Zebeta TAB*] 2.5 mg PO DAILY 01/19/19 [History Confirmed ] PMH/Surg Hx/FS Hx/Imm Hx Previously Healthy: Yes Cardiovascular History: Myocardial Infarction - Surgical History Surgical History: Yes Surgery Procedure, Year, and Place: TONSILLECTOMY - Family History Known Family History: Positive: None, Non-Contributory Negative: Diabetes, Blood Disorder - Social History Alcohol Use: Weekly Substance Use Type: None Smoking Status (MU): Current Some Day Smoker Type: Cigars Length of Time of Smoking/Using Tobacco: Patient states occasional cigar - Immunization History Most Recent Influenza Vaccination: never Most Recent Pneumonia Vaccination: never Review of Systems All Other Systems Reviewed And Are Negative: Yes Constitutional: Positive: Negative Skin: Positive: Rash Eyes: Positive: Negative ENT: Positive: Negative Respiratory: Positive: Negative Cardiovascular: Positive: Negative Gastrointestinal: Positive: Negative Genitourinary: Positive: Negative Motor: Positive: Negative Neurovascular: Positive: Negative Musculoskeletal: Positive: Negative Neurological: Positive: Negative Psychological: Positive: Negative Is Patient Immunocompromised?: No Physical Exam - Summary Physical Exam Summary: VITAL SIGNS: Reviewed. GENERAL: Patient is a well developed and nourished male who is lying comfortably in the stretcher. Patient is not in any acute respiratory distress. HEAD AND FACE: No signs of trauma. No ecchymosis, hematomas or skull depressions. No sinus tenderness. EYES: PERRLA, EOMI x 2, No injected conjunctiva, no nystagmus. EARS: Hearing grossly intact. Ear canals and tympanic membranes are within normal limits. MOUTH: Oropharynx within normal limits. NECK: Supple, trachea is midline, no adenopathy, no JVD, no carotid bruit, no c- spine tenderness, neck with full ROM. CHEST: Symmetric, no tenderness at palpation LUNGS: Clear to auscultation bilaterally. No wheezing or crackles. CVS: Regular rate and rhythm, S1 and S2 present, no murmurs or gallops appreciated. ABDOMEN: Soft, non-tender. No signs of distention. No rebound no guarding, and no masses palpated. Bowel sounds are normal. EXTREMITIES: FROM in all major joints, no edema, no cyanosis or clubbing. NEURO: Alert and oriented x 3. No acute neurological deficits. Speech is normal and follows commands. SKIN: Dry and warm, a rash in the right forearm in the medial aspect of approximately 5 x 6 cm. No central clearing. Irregular borders. Triage Information Reviewed: Yes Appearance: Well-Appearing Vital Signs: Initial Vital Signs Temp 98.4 F 01/19/19 18:38 Pulse 55 01/19/19 18:38 Resp 18 01/19/19 18:38 BP 110/63 01/19/19 18:38 Pulse Ox 100 01/19/19 18:38 Vital Signs Reviewed: Yes Course/Dx - Course Course Of Treatment: Patient has a cellulitis of the skin. At this point unable to report if he was to take her insect bite. The patient is very worried about Lyme disease therefore I will treat the patient with doxycycline for 14 days. Since is only 2 weeks does not use of Lyme titer. He will follow up with the primary care physician next couple days. Patient is hemodynamically stable alert and oriented 3. - Diagnoses Provider Diagnosis: Cellulitis Discharge ED - Sign-Out/Discharge Documenting (check all that apply): Patient Departure All imaging exams completed and their final reports reviewed: No Studies - Discharge Plan Condition: Stable Disposition: HOME Prescriptions: DOXYcycline CAP(*) [DOXYcycline 100MG CAP(*)] 100 mg PO BID #28 cap Patient Education Materials: Cellulitis (ED) Referrals: Alfredo Mendoza MD [Primary Care Provider] - Additional Instructions: Take medications as instructed Increase your fluid intake F/U with PCP in the next 2-3 days Return to the UC if symptoms worsen - Billing Disposition and Condition Condition: STABLE Disposition: Home
== END 2019-01-19 19:12 | disposition home or self-care (01) ==
LOC: UCEAST 18:30
DX: L03.113 Cellulitis of right upper limb (principal); I25.2 Old myocardial infarction; F17.210 Nicotine dependence, cigarettes, uncomplicated
CPT/HCPCS: 99212; G0463

== ENCOUNTER 2021-04-23 09:48 | Observation (INO) ==
[2021-04-23 11:07] LABS: ABS Eosinophils 0.1 10^3/ul (0-0.6); ABS Lymphocytes 1.8 10^3/ul (1.0-4.8); ABS Monocytes 0.7 10^3/ul (0-0.8); ABS Neutrophils 3.5 10^3/ul (1.5-7.7); Eosinophil % 1.7 %; Hematocrit 45 % (42-52); Hemoglobin 15.1 g/dL (14.0-18.0); Lymphocyte % 29.3 %; Mean Corpuscular HGB Conc 34 g/dL (31-36); Mean Corpuscular Hemoglobin 32 pg (27-31); Mean Corpuscular Volume 93 fL (80-94); Mean Platelet Volume 7.3 fL (7.4-10.4); Platelet Count 301 10^3/uL (150-450); Red Cell Distribution Width 14 % (10-15); White Blood Count 6.1 10^3/uL (3.5-10.8)
[2021-04-23 11:12] LABS: INR 1.03 (0.86-1.15)
[2021-04-23 11:21] LABS: ALT 18 U/L (7-52); Albumin 4.6 g/dL (3.2-5.2); Albumin/Globulin Ratio 1.6 (1-3); Alkaline Phosphatase 41 U/L (35-149); Blood Urea Nitrogen 22 mg/dL (6-24); CO2 Carbon Dioxide 29 mmol/L (22-32); Calcium 10.1 mg/dL (8.6-10.3); Chloride 104 mmol/L (101-111); Globulin 2.8 g/dL (2-4); Glucose 96 mg/dL (70-100); Sodium 139 mmol/L (135-145); Total Protein 7.4 g/dL (6.4-8.9); eGFR CKD-EPI 63.3 (>60)
[2021-04-23 11:46] LABS: AST 23 U/L (13-39); Anion Gap 6 mmol/L (2-11); Potassium 4.2 mmol/L (3.5-5.0)
[2021-04-23 13:33] LABS: Cholesterol 231 mg/dL; HDL Cholesterol 54.1 mg/dL; Triglycerides 166 mg/dL
[2021-04-23 13:34] LABS: C Reactive Protein < 1.00 mg/L (<8.01); LDL Cholesterol 144 mg/dL
[2021-04-23] MEDS ORDERED: Heparin 5000 UNITS/ML 1 mL VIAL SUBCUT SCH (14:00)
[2021-04-24 06:48] LABS: ABS Eosinophils 0.2 10^3/ul (0-0.6); ABS Monocytes 0.8 10^3/ul (0-0.8); ABS Neutrophils 4.2 10^3/ul (1.5-7.7); Eosinophil % 2.2 %; Hematocrit 42 % (42-52); Hemoglobin 14.3 g/dL (14.0-18.0); Lymphocyte % 28.3 %; Mean Corpuscular HGB Conc 34 g/dL (31-36); Mean Corpuscular Hemoglobin 32 pg (27-31); Mean Corpuscular Volume 93 fL (80-94); Mean Platelet Volume 7.3 fL (7.4-10.4); Platelet Count 280 10^3/uL (150-450); Red Blood Count 4.51 10^6 /uL (4.18-5.48); Red Cell Distribution Width 13 % (10-15); White Blood Count 7.2 10^3/uL (3.5-10.8)
[2021-04-24 07:05] LABS: Calcium 9.2 mg/dL (8.6-10.3); HDL Cholesterol 49.3 mg/dL; Potassium 4.1 mmol/L (3.5-5.0); eGFR CKD-EPI 66.4 (>60)
[2021-04-24 14:49] VITALS: BP 102/63
[2021-04-24 17:59] LABS: Urine Appearance Clear; Urine Bilirubin Negative (Negative); Urine Blood Negative (Negative); Urine Color Yellow; Urine Glucose Negative (Negative); Urine Ketones Negative (Negative); Urine Nitrite Negative (Negative); Urine Protein Negative (Negative); Urine Specific Gravity 1.023 (1.002-1.030); Urine Urobilinogen Negative (Negative)
== END 2021-04-24 17:45 | disposition home or self-care (01) ==
LOC: ED 09:48 → EDHOLD 09:48 → SUATTDRO 13:12 → EDHOLD 18:33 → MEDTELE 18:37
PROVIDERS: ADMIT Internal Medicine; ATTEND Internal Medicine

== ENCOUNTER 2024-05-17 19:26 | Inpatient (IN) ==
[2024-05-17 20:07] LABS: ABS Eosinophils 0.1 10^3/uL (0.0-0.5); ABS Lymphocytes 1.8 10^3/uL (1.0-4.8); ABS Monocytes 1.4 10^3/uL (0.0-1.1); ABS Neutrophils 10.6 10^3/uL (1.5-7.6); ABS Nucleated RBC 0.01 10^3/ul; Eosinophil % 0.4 %; Hematocrit 41.5 % (38-53); Hemoglobin 14.1 g/dL (13.2-16.3); Mean Corpuscular Hemoglobin 31.3 pg (27-33); Mean Corpuscular Hgb Conc 33.9 g/dL (31-36); Mean Corpuscular Volume 92.2 fL (80-97); Mean Platelet Volume 7.3 fL (7.5-11.2); Platelet Count 285 10^3/uL (150-450); Red Cell Distribution Width 13.5 % (12-17); White Blood Count 13.9 10^3/uL (3.6-10.2)
[2024-05-17] MEDS: Lactated Ringers 1000 ml BAG 1,000 ML IV ONE ×2 (20:07→23:46)
[2024-05-17] MEDS: Ondansetron 4 mg VIAL 2 MG/ML 2 ml VIAL IV ONE (20:07)
[2024-05-17 20:58] LABS: Albumin 4.5 g/dL (3.5-5.7); C Reactive Protein 20.29 mg/L (<8.01); Calcium 9.9 mg/dL (8.6-10.3); Creatinine, Serum 1.28 mg/dL (0.67-1.17); Globulin 2.2 g/dL (2-4); Potassium 3.8 mmol/L (3.5-5.0); Total Bilirubin 0.6 mg/dL (0.2-1.0); Total Protein 6.7 g/dL (6.4-8.9); eGFR CKD-EPI 62.1 (>60)
[2024-05-17 21:23] LABS: Urine Appearance Clear; Urine Bilirubin Negative (Negative); Urine Blood Negative (Negative); Urine Color Light-Yellow; Urine Glucose Negative (Negative); Urine Ketones Negative (Negative); Urine Nitrite Negative (Negative); Urine Protein Negative (Negative); Urine Specific Gravity 1.014 (1.002-1.030); Urine Urobilinogen Negative (Negative)
[2024-05-17] MEDS ORDERED: Ondansetron 4 mg VIAL 2 MG/ML 2 ml VIAL IV PRN (23:23)
[2024-05-17] MEDS ORDERED: Piperacillin/Tazobac 3.375 BAG 3.375 GM/100 ML BAG IV ONE (23:23)
[2024-05-17] MEDS: Piperacillin/Tazobac 3.375 BAG 3.375 GM/100 ML BAG IV ONE (23:30)
[2024-05-17] MEDS ORDERED: HYDROmorphone 0.5 MG/0.5 ML SYRINGE IV SLOW PU PRN (23:30)
[2024-05-17] MEDS ORDERED: fentaNYL 100 mcg/2 ml 50 MCG/ML VIAL ONE (23:44)
[2024-05-17] MEDS ORDERED: Midazolam 2 mg/2 ml VIAL 1 mg/ml 2 ml VIAL (2 mg) ONE (23:44)
[2024-05-17] MEDS ORDERED: Rocuronium 50 mg VIAL 10 mg/ml 5 ml VIAL (50 mg) ONE (23:44)
[2024-05-17] MEDS ORDERED: Dexamethasone IV 4 MG/ML VIAL 1 ml VIAL ONE (23:45)
[2024-05-17] MEDS ORDERED: Ondansetron 4 mg VIAL 2 MG/ML 2 ml VIAL ONE (23:45)
[2024-05-17] MEDS ORDERED: Lidocaine 2% PF 5 ML VIAL ONE (23:45)
[2024-05-17] MEDS ORDERED: Propofol 10 MG/ML 20 ML BTL ONE (23:45)
[2024-05-18] MEDS ORDERED: Phenylephrine IV 10 MG/ML 1 ml VIAL ONE (01:32)
[2024-05-18] MEDS ORDERED: fentaNYL 100 mcg/2 ml 50 MCG/ML VIAL ONE (02:08)
[2024-05-18] MEDS ORDERED: Propofol 10 MG/ML 20 ML BTL ONE (02:26)
[2024-05-18] MEDS ORDERED: Metoclopramide 5 MG/ML VIAL (10 mg) IV PRN (02:32)
[2024-05-18] MEDS ORDERED: fentaNYL 100 mcg/2 ml 50 MCG/ML VIAL IV PRN (02:32)
[2024-05-18] MEDS ORDERED: Ondansetron 4 mg VIAL 2 MG/ML 2 ml VIAL IV PRN (02:32)
[2024-05-18] MEDS ORDERED: Naloxone 0.4 mg VIAL 0.4 mg/ml 1 ml VIAL IV PRN (02:32)
[2024-05-18] MEDS ORDERED: NS 0.45% 1000 ml BAG 1,000 ML IV SCH (03:00)
[2024-05-18] MEDS ORDERED: Acetaminophen IV 1 GM/100ML 1,000 MG/100 ML BAG IV ONE (03:15)
[2024-05-18] MEDS: Acetaminophen IV 1 GM/100ML 1,000 MG/100 ML BAG IV ONE (03:18)
[2024-05-18] MEDS: Buffered Lidocaine 1% SYRIN 1 ml INTRADERM ONE (03:49)
[2024-05-18] MEDS: D5W 1/2 NS 40 Meq KCL 1000 ml 1,000 ML IV SCH (04:41)
[2024-05-18] MEDS: Piperacillin/Tazobac 3.375 BAG 3.375 GM/100 ML BAG IV SCH (04:41)
[2024-05-18] MEDS: Scopolamine 1 mg/72hr PATCH TRANSDERM ONE (04:46)
[2024-05-18] MEDS: Lactated Ringers 1000 ml BAG 1,000 ML IV SCH (05:47)
[2024-05-18 06:06] LABS: Calcium 8.3 mg/dL (8.6-10.3); Creatinine, Serum 1.47 mg/dL (0.67-1.17); Potassium 4.3 mmol/L (3.5-5.0); eGFR CKD-EPI 52.6 (>60)
[2024-05-18] MEDS: Lactated Ringers 1000 ml BAG 1,000 ML IV ONE (09:35)
[2024-05-18] MEDS: Heparin 5000 UNITS/ML 1 mL VIAL SUBCUT SCH (21:12)
[2024-05-19 06:07] LABS: ABS Lymphocytes 1.5 10^3/uL (1.0-4.8); ABS Monocytes 0.8 10^3/uL (0.0-1.1); ABS Neutrophils 11.1 10^3/uL (1.5-7.6); Eosinophil % 0.2 %; Hematocrit 32.9 % (38-53); Hemoglobin 11.4 g/dL (13.2-16.3); Lymphocyte % 11.2 %; Mean Corpuscular Hemoglobin 32.3 pg (27-33); Mean Corpuscular Hgb Conc 34.6 g/dL (31-36); Mean Corpuscular Volume 93.3 fL (80-97); Mean Platelet Volume 7.5 fL (7.5-11.2); Platelet Count 190 10^3/uL (150-450); Red Blood Count 3.52 10^6/uL (4.06-5.63); Red Cell Distribution Width 14.1 % (12-17); White Blood Count 13.5 10^3/uL (3.6-10.2)
[2024-05-19 06:29] LABS: Calcium 8.1 mg/dL (8.6-10.3); Creatinine, Serum 1.52 mg/dL (0.67-1.17); Potassium 4.3 mmol/L (3.5-5.0); eGFR CKD-EPI 50.5 (>60)
[2024-05-20 14:40] VITALS: BP 135/69
== END 2024-05-20 18:45 | disposition home or self-care (01) | DRG 225 ==
LOC: EDHOLD 19:26 → ED 19:26 → AA 23:29 → SSU 05-18 03:51
PROVIDERS: ADMIT Surgery; ATTEND Surgery